=== PATIENT | female | born 1995 | race Caucasian/White ===

== ENCOUNTER 2017-06-03 17:25 | Emergency (ER) | payer OTHER ==
[2017-06-03 17:32] VITALS: RESP 18; O2SAT 98
--- NOTE | 2017-06-03 18:06 | EDPHY ---
H & P Stated Complaint: N/V, L arm abscess, from prison. In custody Source: Patient, Police Exam Limitations: No limitations - Medical/Surgical History Hx Asthma: No Hx Chronic Respiratory Disease: No Hx Diabetes: No Hx Cardiac Disease: No Hx Renal Disease: No Hx Cirrhosis: No Hx Alcoholism: Yes Hx HIV/AIDS: No Hx Splenectomy or Spleen Trauma: No Other PMH: Heroin/meth/xanax abuse/etoh abuse - Social History Smoking Status: Current every day smoker Time Seen by Provider: 06/03/17 17:42 HPI/ROS: CHIEF COMPLAINT: withdrawing from drugs HISTORY OF PRESENT ILLNESS: 21-year-old female presents emergency department with police for nausea, vomiting. Patient states she is withdrawing from heroin , benzos and alcohol. Patient states her last use of all of these was 3 days ago. She states she takes 4 mg of Xanax daily. No history of seizures. Patient denies chest pain or shortness of breath. She reports she cannot stop sneezing and she has abdominal cramping. REVIEW OF SYSTEMS: A comprehensive 10 point review of systems is otherwise negative aside from elements mentioned in the history of present illness. (Nathalia Carmichael) - Physical Exam Exam: Physical Exam Gen: Alert and Oriented, groaning, dry heaving HEENT: PERRL, dry mucous membranes NECK: no meningismus CV: regular rate and regular rhythm PULM: CTAB, no wheezes ABDOMEN: soft, non tender to palpation, BS present BACK: No CVA tenderness NEURO: Neurologically grossly intact EXTREMITIES: normal appearing SKIN: Previously drained abscess to left antecubital fossa with no surrounding erythema PSYCH: answers questions appropriately. (Nathalia Carmichael) Constitutional: Initial Vital Signs Temperature (C) 36.6 C 06/03/17 17:29 Heart Rate 59 L 06/03/17 17:29 Respiratory Rate 18 06/03/17 17:29 Blood Pressure 130/78 H 06/03/17 17:29 O2 Sat (%) 98 06/03/17 17:29 O2 Delivery Mode Room Air Allergies/Adverse Reactions: No Known Allergies Allergy (Unverified 06/03/17 17:29) Home Medications: Medication Instructions Recorded Ondansetron HCl [Zofran] 4 mg PO Q6 PRN #20 tablet 06/03/17 chlordiazePOXIDE [Librium 25 mg 25 mg PO TID 5 Days cap 06/03/17 (*)] Medical Decision Making ED Course/Re-evaluation: The patient was evaluated and managed by the [facility]. My cosignature indicates that I reviewed the chart and I agree with the findings and plan of care as documented. I am the secondary supervising physician. (Glenda Rey) Attempt was made an IV though due to the patient's poor veins we were not able to obtain an IV. Patient was given 5 mg of IM Valium and 4 mg of Zofran ODT. She is [facility] back [facility] the [facility] with a prescription for Librium 3 times a day for 5 days and Zofran. Patient has no peritoneal signs. I will treat her for benzo withdrawals with Librium. (Nathalia Carmichael) - Data Points Medications Given: Discontinued Medications Diazepam (Valium Injection) 5 mg IM EDNOW ONE Stop: 06/03/17 18:26 Last Admin: 06/03/17 18:43 Dose: 5 mg Ondansetron HCl (Zofran Odt) 4 mg PO EDNOW ONE Stop: 06/03/17 18:25 Last Admin: 06/03/17 18:44 Dose: 4 mg Departure - Departure Disposition: Law Enforcement/Court/Custodial Clinical Impression: Polysubstance dependence including opioid type drug, episodic abuse Condition: Good Instructions: Polysubstance Abuse (ED) Additional Instructions: Take 4mg of Zofran every 6 hours as needed for nausea. Give 25mg of Librium three times per day for 4 days. Return to the emergency department for worsening symptoms, new symptoms or concerns. Referrals: NONE *PRIMARY CARE P,. [Primary Care Provider] - As per Instructions Prescriptions: chlordiazePOXIDE [Librium 25 mg (*)] 25 mg PO TID 5 Days cap Ondansetron HCl [Zofran] 4 mg PO Q6 PRN #20 tablet PRN Reason: Nausea/Vomiting, Can'T Take Po
[2017-06-03] MEDS ORDERED: ONDANSETRON DISINTEGRATING 4 MG TAB PO ONE (18:24)
[2017-06-03] MEDS ORDERED: DIAZEPAM 10 MG/2 ML SYR IM ONE (18:25)
[2017-06-03 18:55] VITALS: BP 103/68; PULSE 64; TEMP 99.5
== END 2017-06-03 19:03 ==
DX: F11.20 Opioid dependence, uncomplicated (principal); F17.200 Nicotine dependence, unspecified, uncomplicated